=== PATIENT | male | born 1990 | race Two or more races ===

== ENCOUNTER 2022-11-18 19:17 | Emergency (ER) | payer OTHER ==
[2022-11-18] MEDS ORDERED: Diphtheria,Pertussis(Acell),Tetanus Vaccine 0.5 ML Syringe IM ONE (20:17)
[2022-11-18] MEDS ORDERED: Lidocaine 1% 10 ML MDV INJECT ONE (20:44)
== END 2022-11-18 21:25 | disposition home health service (06) ==
LOC: JD.ED 19:17
DX: S61.412A Laceration without foreign body of left hand, initial encounter (principal); Z23 Encounter for immunization; W20.8XXA Other cause of strike by thrown, projected or falling object, initial encounter
CPT/HCPCS: 12001; 73130-26-LT; 73130-LT; 90471; 90715; 99283; 99283-25; J3490